=== PATIENT | male | born 1965 | race Caucasian/White ===

== ENCOUNTER 2016-12-22 16:32 | Inpatient (IN) ==
[2016-12-22] MEDS ORDERED: Ondansetron 4 MG/2 ML VIAL IVP ONE (18:52)
[2016-12-22] MEDS ORDERED: *HR* HYDROmorphone (PF) 1 MG/ML SYRINGE IVP ONE ×2 (18:52→21:39)
[2016-12-22] MEDS ORDERED: methylPREDNISolone 125 MG/2 ML VIAL IVP ONE (18:52)
--- NOTE | 2016-12-22 18:55 | Emergency Department Note ---
Disposition Clinical Impression: Lumbar compression fracture, Uncontrolled pain, Fall, Calcaneus fracture, right Disposition: Admitted As Inpatient Referrals: Adenike Emerson CNP [Primary Care Provider] - Forms: ED Satisfaction Letter General Adult HPI - General Chief complaint: ED Back Pain/Injury Stated complaint: Back Pain fall 7days ago Time Seen by Provider: 12/22/16 18:38 Source: patient Limitations: no limitations - History of Present Illness HPI Narrative: 51-year-old male reports emergency department planing of low back pain on the left side. He states he fell off a roof about 3 weeks ago and was evaluated at [facility] in their emergency department he describes a CT of the lumbar spine being read as negative, he had a heel fracture which was repaired after the incident. The patient denies any injury to the head neck upper back or chest. He denies any abdominal injury or extremity injuries apart from the right heel. The patient does not take Coumadin or Xarelto or other anticoagulants apart from antiplatelet agents. He has a history of multiple lumbar surgeries. He states he has no appointment with his orthopedist this Thursday. The patient states he developed low back pain about 3 days ago which is worse than usual. He takes opiates for pain control but they have been insufficient to control his pain. The patient describes abdominal pain in left abdomen as well. There is no history of aneurysm. No other acute injuries. No chest pain or shortness of breath. No weakness or numbness in the lower extremities apart from chronic neuropathy left side. He describes sciatica on the left and pain associated with movement. No bloody urine. No acute bowel or bladder dysfunction. History of saddle anesthesia or change in neurologic status the patient is been able to move his feet without difficulty. Fever or rash or urinary symptomatology. Pain Scale: 8 - Related Data Home Medications Medication Instructions Recorded Confirmed Clopidogrel [Plavix] 75 mg PO HS 11/17/16 12/22/16 Duloxetine HCl [Cymbalta] 60 mg PO HS 11/17/16 12/22/16 Gabapentin [Neurontin] 800 mg PO TID 11/17/16 12/22/16 Lisinopril [Zestril] 10 mg PO HS 11/17/16 12/22/16 Oxycodone HCl/Acetaminophen 1 each PO Q6H PRN 11/17/16 12/22/16 [Percocet 10-325 mg Tablet] Aspirin [Lo-Dose Aspirin EC] 81 mg PO HS 12/22/16 12/22/16 Oxycodone HCl [Oxycodone HCl] 5 mg PO Q4-6H PRN 12/22/16 12/22/16 Allergies Allergy/AdvReac Type Severity Reaction Status Date / Time ciprofloxacin [From Cipro] AdvReac Hallucinati Verified 12/22/16 21:54 ng,ITCHING All systems ED: reviewed and negative except as stated. Past Medical History - Past Medical History Medical history: Reports: myocardial infarction, other (Lumbar disc disease with multiple surgeries per patient) Psychiatric history: Reports: no psych history - Social History Smoking Status: Never smoker Smokeless Tobacco Status: No Alcohol use: Reports: none Drug use: Reports: none Physical Exam - General Limitations: no limitations General appearance: alert, other (Appears to be uncomfortable.) - Head Head exam: atraumatic, normocephalic, normal inspection, other (Negative hemotympanum, negative Small sign) - Eye Eye exam: Present: normal appearance, PERRL, EOMI. Absent: scleral icterus, conjunctival injection, miosis, mydriasis - ENT ENT exam: normal exam, normal oropharynx, mucous membranes moist, TM's normal bilaterally, normal external ear exam - Neck Neck exam: Present: normal inspection, full ROM, trachea midline. Absent: tenderness - Chest Chest inspection: Present: symmetric chest wall rise. Absent: tenderness - Respiratory Respiratory exam: Present: normal lung sounds bilaterally. Absent: respiratory distress, wheezes, accessory muscle use, prolonged expiratory phase - Cardiovascular Cardiovascular exam: Present: regular rate, normal rhythm, normal heart sounds - Abdominal Exam Abdominal exam: Present: soft, tenderness, normal bowel sounds. Absent: distention, guarding, rebound, rigidity, Wang's sign, Rovsing's sign, tenderness at McBurney's Point, ascites, pulsatile mass Abdominal tenderness: Present: LUQ, LLQ, mild - Rectal Exam Rectal exam: Present: other (Patient declines rectal examination.) - Extremities Exam Extremities exam: Present: full ROM, normal capillary refill, other (Bilateral upper extremities and left lower extremity warm and well perfused without evidence of neurovascular or neuromuscular compromise or trauma. Good range of motion throughout the major joints. Right lower extremity below the knee is in a cast but the foot is mobile and the patient has good sensation and strength throughout with no evidence of acute neuropathy or vascular issue. Patient can dorsiflex and plantar flex his toes against resistance without difficulty. There is no ismael sensory loss appreciated. No evidence of acute motor dysfunction grossly. The left knee and hip are supple without evidence of overt injury.). Absent: calf tenderness - Expanded Lower Extremity Exam Lower leg exam: Absent: Homans' sign Neurovascular/Tendon exam: Present: normal capillary refill. Absent: motor deficit, sensory deficit, tendon deficit, extremity cold to touch, pallor - Back Exam Back exam: Present: normal inspection, full ROM, tenderness, CVA tenderness (L) , paraspinal tenderness, straight leg raise (L), other (Postsurgical wounds clean dry and intact without evidence of redness swelling or skin color change no fluctuance or abscess.). Absent: vertebral tenderness, straight leg raise (R ) - Neurological Exam Neurological exam: Present: alert, oriented X3, CN II-XII intact. Absent: motor sensory deficit - Psychiatric Psychiatric exam: Present: normal affect, normal mood - Skin Skin exam: Present: warm, dry, intact, normal color. Absent: rash, cyanosis, diaphoresis, erythema, pallor, mottled Course Vital Signs Temperature 98.0 F 12/22/16 16:42 Pulse Rate 81 12/22/16 16:42 Respiratory Rate 16 12/22/16 16:42 Blood Pressure 130/78 12/22/16 16:42 O2 Sat by Pulse Oximetry 96 12/22/16 16:42 Temperature 98.0 F 12/22/16 16:42 Pulse Rate 78 12/22/16 22:16 Respiratory Rate 16 12/22/16 21:41 Blood Pressure 152/86 12/22/16 22:16 O2 Sat by Pulse Oximetry 96 12/22/16 22:16 Oxygen Delivery Oxygen Delivery Room Air Medical Decision Making - [facility] Narrative Medical decision making narrative: The patient is taking Percocet and oxycodone at home, he is approaching 7 tablets a day and has uncontrolled back pain. His CT scan suggest L2 and L3 endplates fractures which are acute. The patient has notable sciatica but no evidence of neurovascular or neuromuscular compromise. No acute intra- abdominal processes noted. The patient has been unable to tolerate the pain at home. We gave him Dilaudid and Zofran in the ED as well as Solu-Medrol and his pain was still uncontrolled. He did not feel comfortable going home. Based on the patient's level of pain and uncontrolled pain with a remote aggressive outpatient regimen, I thought the patient may benefit from hospitalization and perhaps a pain specialist and orthopedic consult. I reviewed the case with Dr. Guevara orthopedist to felt a medical admission would be appropriate with or so consult at medicine discretion. Dr. Rayo would also be available per Dr. Guevara. The patient family are highly recalcitrant for an attempt at home therapy. I consulted with the hospitalist who has accepted the patient to their care. - Lab Data Lab results reviewed: Yes I reviewed the patient's lab results. Result diagrams: 12/22/16 19:00 12/22/16 19:00 Lab Results 12/22/16 12/22/16 12/22/16 Range/Units 19:00 19:00 19:00 WBC 6.0 (4.3-11.1) K/mcL RBC 3.83 L (4.19-5.50) M/mcL Hgb 11.8 L (12.9-16.9) g/dL Hct 36.8 L (37.5-50.1) % MCV 96.1 (83.0-100.0) fL MCH 30.8 (28.0-33.3) pg MCHC 32.1 (31.6-35.5) g/dL RDW 12.0 (11.5-14.5) % Plt Count 355 (140-400) K/mcL MPV 9.6 (9.4-12.4) fL Immature Gran % 0.3 (0-4) % Seg Neutrophils % 49.1 % Lymphocytes % 36.9 % Monocytes % 11.5 % Eosinophils % 1.5 % Basophils % 0.7 % Neutrophils # 2.9 (1.6-8.9) K/mcL Lymphocytes # 2.2 (0.6-4.6) K/mcL Monocytes # 0.7 (0.0-1.3) K/mcL Eosinophils # 0.1 (0.0-0.6) K/mcL Basophils # 0.0 (0.0-0.2) K/mcL Immature Plt Fraction 2.4 (1.1-6.1) % Sodium 140 (136-145) mEq/L Potassium 4.0 (3.5-4.5) mEq/L Chloride 104 (98-109) mEq/L Carbon Dioxide 25 (19-29) mEq/L BUN 9 (8-26) mg/dL Creatinine 0.75 (0.72-1.25) mg/dL Est GFR ( Amer) > 60 (> 60) Est GFR (Non-Af Amer) > 60 (> 60) BUN/Creatinine Ratio 12 (6-26) Glucose 114 H (70-99) mg/dL Calculated Osmolality 290 (280-300) Lactic Acid 2.3 H (0.5-2.2) mmol/L Calcium 9.9 (8.6-10.8) mg/dL Total Bilirubin < 0.2 L (0.2-1.2) mg/dL Direct Bilirubin 0.2 (0.0-0.5) mg/dL Indirect Bilirubin 0.0 (0.0-1.2) mg/dL AST 15 (5-34) Units/L ALT 17 (0-55) Units/L Alkaline Phosphatase 146 H (38-126) Units/L C-Reactive Protein (Less than 5) mg/L Serum Total Protein 7.9 (6.0-8.3) g/dL Albumin 3.9 (3.5-5.0) g/dL Globulin 4.0 H (2.4-3.5) g/dL Albumin/Globulin Ratio 1.0 L (1.1-2.2) Lipase < 10 (8-78) Units/L Urine Color (Yellow) Urine Clarity (Clear) Urine pH (5.0-8.0) pH Units Ur Specific [place] (1.010-1.025) Urine Protein (Neg-Trace) mg/dL Urine Glucose (UA) (Normal) mg/dL Urine Ketones (Negative) mg/dL Urine Blood (Negative) Urine Nitrite (Negative) Urine Bilirubin (Negative) Urine Urobilinogen (Normal) mg/dL Ur Leukocyte Esterase (Negative) Ur Culture Indicated? (NO) 12/22/16 12/22/16 Range/Units 19:00 19:47 WBC (4.3-11.1) K/mcL RBC (4.19-5.50) M/mcL Hgb (12.9-16.9) g/dL Hct (37.5-50.1) % MCV (83.0-100.0) fL MCH (28.0-33.3) pg MCHC (31.6-35.5) g/dL RDW (11.5-14.5) % Plt Count (140-400) K/mcL MPV (9.4-12.4) fL Immature Gran % (0-4) % Seg Neutrophils % % Lymphocytes % % Monocytes % % Eosinophils % % Basophils % % Neutrophils # (1.6-8.9) K/mcL Lymphocytes # (0.6-4.6) K/mcL Monocytes # (0.0-1.3) K/mcL Eosinophils # (0.0-0.6) K/mcL Basophils # (0.0-0.2) K/mcL Immature Plt Fraction (1.1-6.1) % Sodium (136-145) mEq/L Potassium (3.5-4.5) mEq/L Chloride (98-109) mEq/L Carbon Dioxide (19-29) mEq/L BUN (8-26) mg/dL Creatinine (0.72-1.25) mg/dL Est GFR ( Amer) (> 60) Est GFR (Non-Af Amer) (> 60) BUN/Creatinine Ratio (6-26) Glucose (70-99) mg/dL Calculated Osmolality (280-300) Lactic Acid (0.5-2.2) mmol/L Calcium (8.6-10.8) mg/dL Total Bilirubin (0.2-1.2) mg/dL Direct Bilirubin (0.0-0.5) mg/dL Indirect Bilirubin (0.0-1.2) mg/dL AST (5-34) Units/L ALT (0-55) Units/L Alkaline Phosphatase (38-126) Units/L C-Reactive Protein 32 H (Less than 5) mg/L Serum Total Protein (6.0-8.3) g/dL Albumin (3.5-5.0) g/dL Globulin (2.4-3.5) g/dL Albumin/Globulin Ratio (1.1-2.2) Lipase (8-78) Units/L Urine Color Yellow (Yellow) Urine Clarity Clear (Clear) Urine pH 6.0 (5.0-8.0) pH Units Ur Specific [place] 1.026 H (1.010-1.025) Urine Protein Negative (Neg-Trace) mg/dL Urine Glucose (UA) Normal (Normal) mg/dL Urine Ketones Negative (Negative) mg/dL Urine Blood Negative (Negative) Urine Nitrite Negative (Negative) Urine Bilirubin Negative (Negative) Urine Urobilinogen Normal (Normal) mg/dL Ur Leukocyte Esterase Negative (Negative) Ur Culture Indicated? NO (NO) - Radiology Data Radiology results reviewed: Yes I reviewed the patient's radiology results.
[2016-12-22 19:06] LABS: Basophils % 0.7 %; Eosinophils # 0.1 K/mcL (0.0-0.6); Eosinophils % 1.5 %; Hematocrit 36.8 % (37.5-50.1); Hemoglobin 11.8 g/dL (12.9-16.9); Immature Granulocytes % 0.3 % (0-4); Immature Platelets 2.4 % (1.1-6.1); Lymphocytes # 2.2 K/mcL (0.6-4.6); Lymphocytes % 36.9 %; Mean Corpuscular HGB Conc 32.1 g/dL (31.6-35.5); Mean Corpuscular Hemoglobin 30.8 pg (28.0-33.3); Mean Corpuscular Volume 96.1 fL (83.0-100.0); Mean Platelet Volume 9.6 fL (9.4-12.4); Monocytes # 0.7 K/mcL (0.0-1.3); Monocytes % 11.5 %; Neutrophils # 2.9 K/mcL (1.6-8.9); Platelet Count 355 K/mcL (140-400); Red Blood Count 3.83 M/mcL (4.19-5.50); Segmented Neutrophils % 49.1 %
[2016-12-22 19:19] LABS: Alanine Aminotransferase 17 Units/L (0-55); Albumin 3.9 g/dL (3.5-5.0); Alkaline Phosphatase 146 Units/L (38-126); Aspartate Amino Transferase 15 Units/L (5-34); BUN/Creatinine Ratio 12 (6-26); Bilirubin,Direct 0.2 mg/dL (0.0-0.5); Blood Urea Nitrogen 9 mg/dL (8-26); Calcium 9.9 mg/dL (8.6-10.8); Carbon Dioxide 25 mEq/L (19-29); Chloride 104 mEq/L (98-109); Glucose 114 mg/dL (70-99); Osmolality,Calculated 290 (280-300); Sodium 140 mEq/L (136-145); Total Protein 7.9 g/dL (6.0-8.3); eGFR For African Americans > 60 (> 60); eGFR For Non-African Americans > 60 (> 60)
[2016-12-22 19:21] LABS: Bilirubin,Total < 0.2 mg/dL (0.2-1.2); Lipase < 10 Units/L (8-78)
[2016-12-22 19:56] LABS: Bilirubin,Urine Negative (Negative); Blood,Urine Negative (Negative); Clarity,Urine Clear (Clear); Color,Urine Yellow (Yellow); Glucose,Urine (UA) Normal (Normal); Ketones,Urine Negative (Negative); Leukocyte Esterase,Urine Negative (Negative); Nitrite,Urine Negative (Negative); Protein,Urine Negative (Neg-Trace); Specific Gravity,Urine 1.026 (1.010-1.025); Urobilinogen,Urine Normal (Normal)
[2016-12-23] MEDS ORDERED: Ondansetron 4 MG/2 ML VIAL IVP PRN (00:36)
--- NOTE | 2016-12-23 01:00 | Internal Med History&Physical ---
Date of Encounter: 12/23/16 Time of Encounter: 00:56 Assessment and Plan (1) Lumbar compression fracture Current visit: Yes Status: Acute Related to recent fall from a ladder. Minimal loss of vertebral height. Orthopedic consultation. PT OT and social media content manager to see the patient Qualifiers: Qualified Code(s): S32.010A - Wedge compression fracture of first lumbar vertebra, initial encounter for closed fracture (2) Calcaneus fracture, right Current visit: Yes Status: Acute Status post surgery. Orthopedic follow-up. Qualifiers: Qualified Code(s): S92.001A - Unspecified fracture of right calcaneus, initial encounter for closed fracture (3) Coronary artery disease Current visit: Yes Status: Acute Continue aspirin and Plavix. Qualifiers: Qualified Code(s): I25.10 - Atherosclerotic heart disease of [place] coronary artery without angina pectoris Internal Medicine - H&P: HPI Chief complaint: back pain History of present illness: Mr. Abbasi is a 51 year old male with a history of coronary artery disease status post PCI, chronic low back pain status post back surgery, spinal stenosis who had calcaneal fracture on November 29 after the fall for which she had surgery December 15 presents to the emergency room today with an incomplete of back pain. For the past 3 days patient has been having severe low back pain. He was taking Percocet and oxycodone as needed without improvement of this pain. Patient is still able to bear weight on the left lower extremity. Patient denies any bowel or bladder dysfunction. Patient still able to raise both lower extremities against gravity. No otherwise complains. Past Med Surg Social Fam HX - Past Medical History Medical history: myocardial infarction, other (Lumbar disc disease with multiple surgeries per patient) Psychiatric history: no psych history - Social History Smoking Status: Never smoker Smokeless Tobacco Status: No Alcohol use: none Drug use: none Internal Medicine - H&P: Meds Clopidogrel [Plavix] 75 mg PO HS 11/17/16 [History] Duloxetine HCl [Cymbalta] 60 mg PO HS 11/17/16 [History] Gabapentin [Neurontin] 800 mg PO TID 11/17/16 [History] Lisinopril [Zestril] 10 mg PO HS 11/17/16 [History] Oxycodone HCl/Acetaminophen [Percocet 10-325 mg Tablet] 1 each PO Q6H PRN [History] Aspirin [Lo-Dose Aspirin EC] 81 mg PO HS 12/22/16 [History] Oxycodone HCl [Oxycodone HCl] 5 mg PO Q4-6H PRN 12/22/16 [History] 3 Allergy/AdvReac Type Severity Reaction Status Date / Time ciprofloxacin [From Cipro] AdvReac Hallucinati Verified 12/22/16 21:54 ng,ITCHING All Systems PM: A 10-system review of systems was performed and is negative for pertinent findings except as documented above in the HPI. Review of systems: The point review of systems is negative except for HPI. - Constitutional Vitals: Temp Pulse Resp BP Pulse Ox 98.1 F 77 16 146/88 96 12/23/16 00:45 12/23/16 00:45 12/23/16 00:45 12/23/16 00:45 12/23/16 00:45 Exam: General: Patient is A&O X3 Cardiac: normal S1, S2, no additional sounds or murmurs Chest: Clear to auscultation bilaterally Abdomen: soft, nontender, non distended, normal BS. Neuro: No focal deficits Muskloskletal: straight leg raise -ve Internal Med - H&P Results - Labs CBC & Chem 7: 12/22/16 19:00 12/22/16 19:00
[2016-12-23] MEDS: *HR* HYDROmorphone (PF) 1 MG/ML SYRINGE IVP PRN ×5 (01:47→21:28)
[2016-12-23] MEDS: *HR* OxyCODONE/APAP 10/325 TABLET PO PRN ×3 (03:51→20:07)
[2016-12-23] MEDS: Famotidine 20 MG TABLET PO SCH ×2 (09:09→21:12)
[2016-12-23] MEDS: Gabapentin 400 MG CAPSULE PO SCH ×3 (09:09→21:12)
--- NOTE | 2016-12-23 15:35 | Internal Med Progress Note ---
Date of Encounter: 12/23/16 Time of Encounter: 14:15 - Assessment and plan (1) Lumbar compression fracture Current Visit: Yes Status: Acute Assessment and plan: Presents with acute on chronic back pain, worsening since recent fall 3 weeks ago; CT lumbar spine shows superior end-plate compression fractures of L2-3 with intact hardware in L3-S1 fusion; pain control with PRN IV Dilaudid and Percocet; Spine surgery consulted, will f/ up recommendations; PT/OT pending; Qualifiers: Encounter type: subsequent encounter Lumbar vertebra fracture level: L3 Fracture type: closed Fracture healing: with routine healing Qualified Code( s): S32.030D - Wedge compression fracture of third lumbar vertebra, subsequent encounter for fracture with routine healing (2) Calcaneus fracture, right Current Visit: Yes Status: Acute Assessment and plan: patient had recent fracture involving ankle and calcaneus, underwent repair and fixation- ORIF; continue pain meds and [id number] on right foot; continue splint, surgical boot to right foot; follows with Orthopedics at [place]; Qualifiers: Encounter type: subsequent encounter Calcaneus location: unspecified portion of calcaneus Fracture type: closed Fracture alignment: displaced Fracture healing: with routine healing Qualified Code(s): S92.001D - Unspecified fracture of right calcaneus, subsequent encounter for fracture with routine healing (3) Coronary artery disease Current Visit: Yes Status: Chronic Qualifiers: Coronary Disease-Associated Artery/Lesion type: [place] artery [place] vs. transplanted heart: [place] heart Associated angina: without angina Qualified Code(s): I25.10 - Atherosclerotic heart disease of [place] coronary artery without angina pectoris - Subjective Interval history: Reports back pain, worse on sitting up or standing, better in supine position; right ankle pain tolerable; had a mechanical fall about 3 weeks ago and a subsequent right calcaneal and ankle repair surgery; follows with Orthopedics and Spine surgery at [place]; - Constitutional Vitals: Temp Pulse Resp BP Pulse Ox 97.9 F 85 18 124/66 93 12/23/16 14:37 12/23/16 14:37 12/23/16 14:37 12/23/16 14:37 12/23/16 14:37 General appearance: Present: A&O X 3, obese, answers questions appropriately - Respiratory Respiratory exam: Present: CTAB. Absent: accessory muscle use, rales, rhonchi, wheezes - Cardiovascular Cardiovascular exam: Present: RRR, +S1, +S2. Absent: diastolic murmur, gallop, rubs, systolic murmur - GI/Abdominal GI/Abdominal exam: Present: normal bowel sounds, soft, no peritoneal signs. Absent: distended, tenderness - Extremities Exam Extremities exam: Present: full ROM (restricted in right ankle), warm, radial pulses palpable and symmetrical. Absent: calf tenderness, cyanotic, pedal edema Additional comments: right ankle in splint and surgical boot - Neurological Exam Neurological exam: Present: CN II-XII intact, oriented X3, no focal deficits. Absent: pronater drift, facial droop, speech deficit Internal Medicine: Result - Labs CBC & Chem 7: 12/22/16 19:00 12/22/16 19:00 Consult Discharge Plan - Plan Referrals: Adenike Emerson GREEN END DEPARTMENT SUPERVISOR [Primary Care Provider] -
--- NOTE | 2016-12-23 18:57 | Spinal Consult Note ---
Date of Encounter: 12/23/16 Time of Encounter: 18:54 Assessment and Plan (1) Lumbar vertebral fracture Current Visit: Yes Status: Acute He is lying in bed in obvious pain secondary to back pain. Afebrile vital signs stable. He is neurovascularly intact with regard to his bilateral lower extremities. He is tenderness to palpation in the lumbar region. His hip move symmetrically. He has a posterior splint over the right leg and ankle. CT scan of the lumbar spine reveals an instrumented fusion with pedicle screws at L3 and S1. Fusion extends from L3-S1 and there is an interbody graft at L5- S1. There is no hardware complication seen. There are acute superior endplate fractures at L2 and L3. The L2 fracture has approximately 20% loss of vertebral height. There is minimal loss of height of the L3 fracture. Impression: 1) Vertebral fractures L2 and L3 superior endplates 2) history of previous lumbar fusion. Plan: I had a long discussion with the patient regarding treatment of vertebral fractures of the lumbar spine. We discussed nonoperative treatment including bracing and analgesics. The patient would like to proceed with kyphoplasty of L2. The patient understands that the presence of pedicle screws in L3 precludes cannulating this vertebral body via a transpedicular route. The L2 fracture is the more severe fracture pattern and this was discussed. Risks benefits and possible complications were discussed and the patient would like to proceed. We are going to hold his Plavix until after the surgical procedure. The patient understands he must be medically optimized and cleared prior to surgical intervention. Qualifiers: Encounter type: initial encounter Lumbar vertebra fracture level: L2 Fracture type: closed Fracture morphology: unspecified fracture morphology Qualified Code(s): S32.029A - Unspecified fracture of second lumbar vertebra, initial encounter for closed fracture (2) History of lumbar spinal fusion Current Visit: Yes Status: Acute History of Present Illness Chief complaint: Severe back pain after a fall HPI: Mr. Abbasi is a 51 year old male Who complains of a five-day history of severe back pain after a fall. He has had 5 previous back surgeries including lumbar fusion by Dr. Hayes in [facility]. He compliant currently complains of severe low back pain which is in this lumbar region. 90% of his pain is in the back but he does have a small radicular component in the left inguinal region. He denies fevers, chills, bowel bladder symptomatology, or significant radicular symptoms. We are asked to see the patient secondary to fractures found on CT scan. He was admitted through the emergency department last night due to intractable pain. Past Med Surg Social Fam HX - Past Medical History Medical history: myocardial infarction, other Psychiatric history: no psych history - Social History Smoking Status: Never smoker Smokeless Tobacco Status: No Alcohol use: none Drug use: none - Family History Father Name: Rj Abbasi Age: 56 Family Member Ethnicity: Non- Living Status: Age at : 56 Cause of : Lung Cancer Hx Family Cardiac Disorders: No Hx Family Respiratory Disorders: No Hx Family Cancer: Yes (lung cancer) Hx Family GI Disorders: No Hx Family Genitourinary Disorders: No Hx Family Endocrine Disorder: No Hx Family Musculoskeletal Disorders: No Hx Family Neuromuscular Disorders: No Hx Family Neurologic Disorders: No Hx Family HEENT Disorders: No Hx Family Autoimmune Disorders: No Hx Family Reproductive Disorders: No Hx Family Psychosocial Disorders: No Hx Family Medical Disorders: No Medications and Allergies Clopidogrel [Plavix] 75 mg PO HS 11/17/16 [History] Duloxetine HCl [Cymbalta] 60 mg PO HS 11/17/16 [History] Gabapentin [Neurontin] 800 mg PO TID 11/17/16 [History] Lisinopril [Zestril] 10 mg PO HS 11/17/16 [History] Oxycodone HCl/Acetaminophen [Percocet 10-325 mg Tablet] 1 each PO Q6H PRN [History] Aspirin [Lo-Dose Aspirin EC] 81 mg PO HS 12/22/16 [History] Oxycodone HCl [Oxycodone HCl] 5 mg PO Q4-6H PRN 12/22/16 [History] 3 Allergy/AdvReac Type Severity Reaction Status Date / Time ciprofloxacin [From Cipro] AdvReac Hallucinati Verified 12/22/16 21:54 ng,ITCHING Results - Labs Result Diagrams: 12/22/16 19:00 12/22/16 19:00 Labs: Abnormal lab results RBC 3.83 M/mcL (4.19-5.50) L 12/22/16 19:00 Hgb 11.8 g/dL (12.9-16.9) L 12/22/16 19:00 Hct 36.8 % (37.5-50.1) L 12/22/16 19:00 Glucose 114 mg/dL (70-99) H 12/22/16 19:00 Total Bilirubin < 0.2 mg/dL (0.2-1.2) L 12/22/16 19:00 Alkaline Phosphatase 146 Units/L (38-126) H 12/22/16 19:00 C-Reactive Protein 32 mg/L (Less than 5) H 12/22/16 19:00 Globulin 4.0 g/dL (2.4-3.5) H 12/22/16 19:00 Albumin/Globulin Ratio 1.0 (1.1-2.2) L 12/22/16 19:00 Ur Specific [place] 1.026 (1.010-1.025) H 12/22/16 19:47 All other labs normal. Consult Discharge Plan - Plan Referrals: Adenike Emerson, SPANNER OPERATOR [Primary Care Provider] -
[2016-12-23] MEDS ORDERED: Aspirin Enteric Coated 81 MG Tablet PO SCH (21:00)
[2016-12-24] MEDS: *HR* HYDROmorphone (PF) 1 MG/ML SYRINGE IVP PRN ×5 (01:38→21:00)
[2016-12-24] MEDS: *HR* OxyCODONE/APAP 10/325 TABLET PO PRN ×4 (07:09→23:11)
[2016-12-24] MEDS: Gabapentin 400 MG CAPSULE PO SCH ×3 (07:10→20:09)
[2016-12-24] MEDS: Famotidine 20 MG TABLET PO SCH ×2 (07:11→20:09)
--- NOTE | 2016-12-24 11:19 | Anesthesia Evaluation PreOp ---
Date of Encounter: 12/24/16 Time of Encounter: 11:17 - Past History Planned Operation: L2 Kyphoplasty Cardiac History: ID, HTN, Cardiac Stent (2014) Pulmonary History: Denies Any Significant HX SPECIAL AGENT History: Denies Any Significant HX Other Medical History: Denies Any Significant HX Alcohol Use: none Drug use: none Medications and Allergies Clopidogrel [Plavix] 75 mg PO HS 11/17/16 [History] Duloxetine HCl [Cymbalta] 60 mg PO HS 11/17/16 [History] Gabapentin [Neurontin] 800 mg PO TID 11/17/16 [History] Lisinopril [Zestril] 10 mg PO HS 11/17/16 [History] Oxycodone HCl/Acetaminophen [Percocet 10-325 mg Tablet] 1 each PO Q6H PRN [History] Aspirin [Lo-Dose Aspirin EC] 81 mg PO HS 12/22/16 [History] Oxycodone HCl [Oxycodone HCl] 5 mg PO Q4-6H PRN 12/22/16 [History] 3 Allergy/AdvReac Type Severity Reaction Status Date / Time ciprofloxacin [From Cipro] AdvReac Hallucinati Verified 12/22/16 21:54 ng,ITCHING - Meds/Allergy Pre-op Review Medications Reviewed: Yes Allergies Reviewed: Yes Beta Blockers on Current Med List: No Anesthesia Results - Labs 12/22/16 19:00 12/22/16 19:00 Echocardiogram Name: Alfredo Abbasi Date of Study: 12/12/2016 Impressions: LVEF 60%. Moderate left ventricular diastolic dysfunction. Normal right ventricular structure and function. Mild aortic regurgitation. Mild tricuspid regurgitation. Mild pulmonary hypertension. Anesthesia Exam O2 Sat Weight 107.96 kg O2 Sat by Pulse Oximetry 98 O2 Sat by Pulse Oximetry 97 O2 Sat by Pulse Oximetry 97 O2 Sat by Pulse Oximetry 97 O2 Sat by Pulse Oximetry 93 Vital Signs Temp Pulse Resp BP Pulse Ox 98.0 F 81 16 130/78 96 12/22/16 16:42 12/22/16 16:42 12/22/16 16:42 12/22/16 16:42 12/22/16 16:42 Height: 6'1'' Weight: 238# NPO (# of Hours): > 8 hrs Pain Scale: 0 Pain Scale Used: Numeric (1 - 10) - HEENT Pupil (Motor): Pupils equal, EOMI Mallampati: II Teeth: Normal Oral Opening: Greater than 3 - SPECIAL AGENT LOC: Oriented SPECIAL AGENT Motor: Normal RUE, Normal LUE, Normal RLE, Normal LLE, Normal Face SPECIAL AGENT Sensory: Normal: RUE, LUE, RLE, LLE, Face - Cardiac Rhythm: Regular Murmur: None JVD: No Carotid Bruit: No - Pulmonary Breath Sounds: bilateral Clear Respiratory Effort: Symmetrical Anesthesia Assess/Plan ASA Score: 3 Modified Fredrick Scale for Level of Consciousness: Cooperative, oriented, and tranquil Anesthetic Plan: General Autologous Blood: Yes Monitoring Plan: Standard Monitors Recovery Plan: PACU
[2016-12-24] MEDS ORDERED: Ondansetron 4 MG/2 ML VIAL IVP PRN (11:33)
[2016-12-24] MEDS ORDERED: CeFAZolin Syringe 2,000MG/20 ML SYR IVPB ONE (11:52)
[2016-12-24] MEDS ORDERED: *HR* FentaNYL (PF) 100 MCG/2 ML VIAL ONE (11:56)
[2016-12-24] MEDS ORDERED: *HR* Succinylcholine 200 MG/10 ML VIAL IVP ONE (11:56)
[2016-12-24] MEDS ORDERED: Lidocaine -MPF 2% 2 ML VIAL ONE (11:56)
[2016-12-24] MEDS ORDERED: Ondansetron 4 MG/2 ML VIAL ONE (11:56)
[2016-12-24] MEDS ORDERED: Lidocaine -MPF 4% 5 ML AMPUL ONE (11:56)
[2016-12-24] MEDS ORDERED: Dexamethasone 4 MG/ML VIAL ONE (11:56)
[2016-12-24] MEDS ORDERED: *HR* Propofol 200 MG/20 ML VIAL IVP ONE ×2 (11:56→12:37)
[2016-12-24] MEDS ORDERED: *HR* Midazolam HCl 2 MG/2 ML VIAL ONE (11:56)
[2016-12-24] MEDS ORDERED: ceFAZolin 2,000 MG in Water for inj. (sterile) 20 ML IVP ONE (12:04)
[2016-12-24] MEDS ORDERED: Gabapentin 400 MG CAPSULE PO STA (13:05)
--- NOTE | 2016-12-24 13:07 | Internal Med Progress Note ---
Date of Encounter: 12/24/16 Time of Encounter: 08:35 - Assessment and plan (1) Lumbar vertebral fracture Current Visit: Yes Status: Acute Assessment and plan: Spine surgery consulted. Awaiting kyphoplasty planned for later today. Moderate risk for complications. Qualifiers: Encounter type: initial encounter Lumbar vertebra fracture level: L2 Fracture type: closed Fracture morphology: other fracture Qualified Code(s) : S32.028A - Other fracture of second lumbar vertebra, initial encounter for closed fracture (2) Calcaneus fracture, right Current Visit: Yes Status: Acute Assessment and plan: Supportive care. Pain control and physical therapy. Continue splint and surgical boot to right foot. Qualifiers: Encounter type: subsequent encounter Calcaneus location: unspecified portion of calcaneus Fracture type: closed Fracture alignment: displaced Fracture healing: with routine healing Qualified Code(s): S92.001D - Unspecified fracture of right calcaneus, subsequent encounter for fracture with routine healing (3) Coronary artery disease Current Visit: Yes Status: Chronic Assessment and plan: No chest pain at this time. Okay to hold Plavix for planned surgery today. May resume when okay with surgery after postoperatively. Patient does not have any shortness of breath or signs of heart failure. Qualifiers: Coronary Disease-Associated Artery/Lesion type: [place] artery [place] vs. transplanted heart: [place] heart Associated angina: without angina Qualified Code(s): I25.10 - Atherosclerotic heart disease of [place] coronary artery without angina pectoris - Subjective Interval history: Patient is awake and alert. Complains of back pain especially with movement. Scheduled for kyphoplasty performed later today. No other complaints at this time. No focal weakness. No numbness. No bowel or bladder incontinence. - Constitutional Vitals: Temp Pulse Resp BP Pulse Ox 98 F 74 16 124/67 99 12/24/16 09:53 12/24/16 09:53 12/24/16 09:53 12/24/16 09:53 12/24/16 09:53 General appearance: Present: A&O X 3, obese, answers questions appropriately - Respiratory Respiratory exam: Present: CTAB. Absent: accessory muscle use, rales, rhonchi, wheezes - Cardiovascular Cardiovascular exam: Present: RRR, +S1, +S2. Absent: diastolic murmur, gallop, rubs, systolic murmur - GI/Abdominal GI/Abdominal exam: Present: normal bowel sounds, soft, no peritoneal signs. Absent: distended, tenderness - Extremities Exam Extremities exam: Present: warm, radial pulses palpable and symmetrical. Absent : calf tenderness, cyanotic, pedal edema - Neurological Exam Neurological exam: Present: CN II-XII intact, oriented X3, no focal deficits, strengths equal and symetr throughout. Absent: facial droop, speech deficit Internal Medicine: Result - Labs CBC & Chem 7: 12/22/16 19:00 12/22/16 19:00 - VTE Documentation of Mechanical Device: Intermittent pneumatic compression device Consult Discharge Plan - Plan Referrals: Adenike Emerson, STERILE SUPERVISOR [Primary Care Provider] -
[2016-12-24] MEDS ORDERED: Ketorolac 30 MG/ML VIAL IVP ONE (13:15)
--- NOTE | 2016-12-24 13:48 | Anesthesia Evaluation Post Op ---
Date of Encounter: 12/24/16 Time of Encounter: 13:42 - Vital Signs Vital Signs: vss - Lungs Lungs: Clear Ascult./Percussion - Airway Airway: Non-obstructed - Cardiovascular Baseline Rhythm - Mental Status Mental Status: Alert & Oriented, Answers Appropriately - Pain Pain Scale used: Darlene (Faces) (RN informed to notify attending immediately if any neuro changes occur as patient has swollen area around incision on single level Kypho. surgeon aware and will assess. ok to move from anesthesia standpoint, and surgeon stated to RN's okay to move to floor and will assess RACH.) - Nausea Vomiting Nausea Vomiting: Not Present - Hydration Hydration: Ice chips - Discharge PostOp Status: Transfer Patient to floor
[2016-12-24] MEDS: Ringers Solution, Lactated 1,000 ML IVC SCH (15:04)
[2016-12-24] MEDS: CeFAZolin Premix DUPLEX 2,000 MG/50 ML BAG IVPB SCH (19:04)
[2016-12-25] MEDS: *HR* HYDROmorphone (PF) 1 MG/ML SYRINGE IVP PRN ×2 (01:13→05:21)
[2016-12-25] MEDS: Ringers Solution, Lactated 1,000 ML IVC SCH (01:48)
[2016-12-25] MEDS: CeFAZolin Premix DUPLEX 2,000 MG/50 ML BAG IVPB SCH (03:43)
[2016-12-25] MEDS: *HR* OxyCODONE/APAP 10/325 TABLET PO PRN ×3 (03:43→12:25)
[2016-12-25] MEDS: Gabapentin 400 MG CAPSULE PO SCH ×2 (08:25→14:58)
[2016-12-25] MEDS: Famotidine 20 MG TABLET PO SCH (08:25)
--- NOTE | 2016-12-25 13:29 | Discharge Summary ---
Date of Encounter: 12/25/16 Time of Encounter: 11:50 - Discharge Diagnosis (1) Lumbar vertebral fracture Priority: Primary Status: Acute Qualifiers: Encounter type: initial encounter Lumbar vertebra fracture level: L2 Fracture type: closed Fracture morphology: other fracture Qualified Code(s) : S32.028A - Other fracture of second lumbar vertebra, initial encounter for closed fracture (2) Calcaneus fracture, right Priority: Secondary Status: Acute Qualifiers: Encounter type: subsequent encounter Calcaneus location: unspecified portion of calcaneus Fracture type: closed Fracture alignment: displaced Fracture healing: with routine healing Qualified Code(s): S92.001D - Unspecified fracture of right calcaneus, subsequent encounter for fracture with routine healing (3) Coronary artery disease Priority: Secondary Status: Chronic Qualifiers: Coronary Disease-Associated Artery/Lesion type: [place] artery [place] vs. transplanted heart: [place] heart Associated angina: without angina Qualified Code(s): I25.10 - Atherosclerotic heart disease of [place] coronary artery without angina pectoris - Discharge Medications Prescriptions: Morphine Sulfate [Arymo ER] 15 mg PO BID #10 tab.po.er Home Medications: Clopidogrel [Plavix] 75 mg PO HS 11/17/16 [History] Duloxetine HCl [Cymbalta] 60 mg PO HS 11/17/16 [History] Gabapentin [Neurontin] 800 mg PO TID 11/17/16 [History] Lisinopril [Zestril] 10 mg PO HS 11/17/16 [History] Oxycodone HCl/Acetaminophen [Percocet 10-325 mg Tablet] 1 each PO Q6H PRN [History] Aspirin [Lo-Dose Aspirin EC] 81 mg PO HS 12/22/16 [History] Morphine Sulfate [Arymo ER] 15 mg PO BID #10 tab.po.er 12/25/16 [Rx] Allergies/Adverse Reactions: 3 Allergy/AdvReac Type Severity Reaction Status Date / Time ciprofloxacin [From Cipro] AdvReac Hallucinati Verified 12/22/16 21:54 ng,ITCHING Date of admission: 12/23/16 15:32 Primary care physician: Adenike Emerson CNP Consults: 12/23/16 00:36 Consult to Occupational Therapy [CONS] Routine Comment: Evaluate, develop and implement POC Reason for Consult: weakness Consult to Orthopedic Surgery [CONS] Routine Consulting Provider: Orthopedics [facility] Reason for Consult: back pain Call Completed: Yes Consult to Physical Therapy [CONS] Routine Comment: Evaluate, develop and implement POC Reason for Consult: back pain 12/23/16 01:28 Consult to Nutrition [CONS] Routine Comment: Consulting Provider: NUTRITION Reason for Dietary Consult: MST Score Discharging clinician: Rico Keller Anticipated date of discharge: 12/25/16 - Patient Status Disposition: Home, Self-Care Condition: Good Functional capacity at discharge: independent ambulation Overall status at discharge: patient is progressing back to baseline - Discharge Instructions Follow Up With: Carolann Alex PAC [Physician Biblical Studies Professor] - 01/13/17 9:45 am Chung Rayo Jr, MD [Partnered Physician] - (in 1- 2 weeks for follow up) Adenike Emerson GAS METER INSTALLER [Primary Care Provider] - 01/05/17 1:00 pm () Additional Instructions: Discharge Instructions: Lumbar Please call [facility] ([phone]), your Primary Care Physician, or report to the ER if you have any of the following symptoms: Fever greater that 101.5, increased pain/redness/drainage/odor for your incision site or any other concerning symptoms. ACTIVITY * May Shower * No Tub Baths * No lifting greater than 10 pounds * No Smoking * No Swimming * No off Ground Activities (Running, Climbing, Ladders, Horseback Riding) * No Driving * Wear Back Brace when up walking if lumbar fusion done MEDICATIONS: Upon discharge resume your home medications. Take all the medications as prescribed. Take a stool softener if taking narcotic pain medications. Stool softeners are only effective if you drink enough fluids. Drink 6-8 glass of water or fluids a day, unless this is not allowed for another health problem. Despite using stool softeners, if you haven't had a bowel movement in 3 days, please switch to a gentle laxative. Gentle laxatives are sold over the counter. You should have a bowel movement within 24 hours, if not call the office. You will be discharged from the hospital with a prescription for pain medication. You are encouraged to decrease the use of narcotic pain medication as tolerated. Should you require a refill, please call the office. It is best to call 48-72 hours in advance of needing a prescription refill so you don't run out of medication. WOUND CARE: Remove Dressing Tomorrow. Leave incision open to air. Pat dry when you get out of the shower. FOLLOW-UP: Please follow up with your surgeon in the orthopedic clinic in 2 weeks from the day of surgery. References: [place] [employer] (www.[email or web address].org) - Diet and Activity Activity: increase activity as tolerated Diet: low fat, low cholesterol, low salt diet Hospital course: Mr. Abbasi is a 51 year old male patient who presented to the ER with complaints of acute on chronic back pain. He apparently had recently fallen from a ladder. CT scan of the lumbar spine showed a vertebral fracture involving the superior endplates of L2 and L3. Spine surgery was consulted and they recommended kyphoplasty. Patient underwent this procedure yesterday. Since then his mood remained stable on the floor. His pain is controlled with oral medications but he does require intravenous medications intermittently to control breakthrough pain. At this time, he is being cleared for discharge by spine surgery. He was evaluated by physical therapy and recommended that he he is able to return to his prior living situation. He will be discharged today and will follow up with spine surgery as outpatient. He will be provided with prescription for long-acting narcotic pain medications that he may use regularly over the next week and take his Percocet as needed for breakthrough pain. - Time Spent with Patient Total time spent providing and/or coordinating discharge services: Less than 30 minutes (25 min) - Constitutional Vitals: Temp Pulse Resp BP Pulse Ox 98 F 74 16 129/76 98 12/25/16 09:30 12/25/16 09:30 12/25/16 09:30 12/25/16 09:30 12/25/16 09:30 General appearance: Present: A&O X 3, obese, answers questions appropriately - Neck Neck exam general surgery: Present: supple, trachea midline. Absent: lymphadenopathy - Respiratory Respiratory exam: Present: CTAB. Absent: accessory muscle use, rales, rhonchi, wheezes - Cardiovascular Cardiovascular exam: Present: RRR, +S1, +S2. Absent: diastolic murmur, gallop, rubs, systolic murmur - GI/Abdominal GI/Abdominal exam: Present: normal bowel sounds, soft, no peritoneal signs. Absent: distended, tenderness - Extremities Exam Extremities exam: Present: warm, radial pulses palpable and symmetrical. Absent : calf tenderness, cyanotic, pedal edema - Neurological Exam Neurological exam: Present: alert, oriented X3, no focal deficits. Absent: facial droop, speech deficit - VTE Documentation of Mechanical Device: Venous foot pump, device
[2016-12-25] MEDS ORDERED: *HR* OxyCODONE ER (12 HR) 10 MG TABLET PO SCH (13:30)
--- NOTE | 2016-12-25 13:30 | Orthopedic Operative Note ---
Date of procedure: 12/24/16 Pre-op diagnosis: Vertebral compression fracture Post-op diagnosis: same Operation/Findings: Kyphoplasty L2: The patient was brought to the operative theater where successful endotracheal anesthesia was performed. The patient was given antibiotics prior to the start of the procedure. Compression boots and stockings were used for deep vein thrombosis. Patient was then turned prone on a well-padded Delta table. The back was prepped and draped in the usual sterile fashion. 2 C-arm fluorographic devices were brought into position such that simultaneous AP and lateral views centered over the involved L2 vertebral body could be performed. A stab incision was made over the superior-lateral aspect of the left L2 pedicle. We introduced a Jamshidi needle into the vertebral body via a transpedicular route. We took biplanar images of the vertebral body using fluorography. The needle was found to be in appropriate position and within the confines of the L2 vertebral body. We then introduced a biopsy trocar and obtained a biopsy specimen of the L2 vertebral body. This was sent for pathologic evaluation. We then removed the biopsy trocar and introduced a Kyphon balloon. The balloon was insufflated to approximately 4 mL volume and subsequently deflated. The balloon was seen to expand within the confines of the L2 vertebral body on biplanar fluorographic views. The balloon was then removed. We then inserted cement trochars and sequentially placed bone cement within the confines of the L2 vertebral body. We took intermittent fluorographic views which confirmed satisfactory placement of the cement. After completion of the cementation process, the trocar was removed. We took final AP and lateral fluorographic views. We then closed the stab incision with 2-0 nylon suture. A Band-Aid was placed over the wound. The patient was turned supine on a hospital bed and extubated. All sponge instrument and needle counts were correct at the end of the procedure. The patient tolerated the procedure well without complications. Anesthesia: GETA Surgeon: Chung Rayo Jr Estimated blood loss (cc): 3 Specimen: L2 vertebral biopsy Condition: stable Disposition: PACU
--- NOTE | 2016-12-25 13:32 | Spine Progress Note ---
Date of Encounter: 12/25/16 Time of Encounter: 13:31 - Assessment and Plan (1) Lumbar vertebral fracture Current Visit: Yes Status: Acute He is lying in bed in obvious pain secondary to back pain. Afebrile vital signs stable. He is neurovascularly intact with regard to his bilateral lower extremities. He is tenderness to palpation in the lumbar region. His hip move symmetrically. He has a posterior splint over the right leg and ankle. CT scan of the lumbar spine reveals an instrumented fusion with pedicle screws at L3 and S1. Fusion extends from L3-S1 and there is an interbody graft at L5- S1. There is no hardware complication seen. There are acute superior endplate fractures at L2 and L3. The L2 fracture has approximately 20% loss of vertebral height. There is minimal loss of height of the L3 fracture. Impression: 1) Vertebral fractures L2 and L3 superior endplates 2) history of previous lumbar fusion. Plan: I had a long discussion with the patient regarding treatment of vertebral fractures of the lumbar spine. We discussed nonoperative treatment including bracing and analgesics. The patient would like to proceed with kyphoplasty of L2. The patient understands that the presence of pedicle screws in L3 precludes cannulating this vertebral body via a transpedicular route. The L2 fracture is the more severe fracture pattern and this was discussed. Risks benefits and possible complications were discussed and the patient would like to proceed. We are going to hold his Plavix until after the surgical procedure. The patient understands he must be medically optimized and cleared prior to surgical intervention. Qualifiers: Encounter type: initial encounter Lumbar vertebra fracture level: L2 Fracture type: closed Fracture morphology: other fracture Qualified Code(s) : S32.028A - Other fracture of second lumbar vertebra, initial encounter for closed fracture (2) History of lumbar spinal fusion Current Visit: Yes Status: Acute Subjective Principal diagnosis: Vertebral compression fracture, status post kyphoplasty Interval history: The patient is without complaints. Pain improved compared to preoperative state. Afebrile vital signs are stable. Band-Aids intact. Neurovascularly intact with regard to bilateral lower extremities. Fires all upper and lower extremity motor groups. Assessment :stable. Plan mobilize ,continue analgesics, discharge planning. Objective Vital signs: Vital Signs Temp Pulse Resp BP Pulse Ox 12/25/16 09:30 98 F 74 16 129/76 98 12/25/16 06:38 97.9 F 68 16 134/78 96 12/25/16 05:02 97.7 F 66 18 131/77 95 12/24/16 23:14 97.7 F 69 14 150/83 97 12/24/16 18:56 97.7 F 73 14 107/65 95 12/24/16 15:30 97.6 F 68 18 133/77 96 12/24/16 15:10 97.3 F L 65 16 134/76 94 12/24/16 14:30 97.8 F 63 26 132/84 96 12/24/16 13:40 97.3 F L 56 12 104/83 99 Intake and Output 12/24/16 12/25/16 12/25/16 23:59 07:59 15:59 Intake Total 2490 / 2490 1020 / 1020 Output Total 2725 / 2725 1500 / 1500 Balance -235 / -235 -480 / -480 Intake: IV Fluids 1050 / 1050 50 / 50 Lactated Ringers 1,000 ML @ 125 1000 / 1000 mls/hr IVC .Q8H MARY Rx#: [id number] Ancef Premix DUPLEX 2,000 mg In 50 / 50 50 / 50 50 ml @ 100 mls/hr IVPB Q8H MARY Rx#:[id number] Oral 1440 / 1440 970 / 970 Output: Urine 2725 / 2725 1000 / 1000 Catheter 500 / 500 Other: Meal Dinner Percent of Meal Consumed 100% - Labs CBC & BMP: 12/22/16 19:00 12/22/16 19:00 Labs: Abnormal lab results RBC 3.83 M/mcL (4.19-5.50) L 12/22/16 19:00 Hgb 11.8 g/dL (12.9-16.9) L 12/22/16 19:00 Hct 36.8 % (37.5-50.1) L 12/22/16 19:00 Glucose 114 mg/dL (70-99) H 12/22/16 19:00 Total Bilirubin < 0.2 mg/dL (0.2-1.2) L 12/22/16 19:00 Alkaline Phosphatase 146 Units/L (38-126) H 12/22/16 19:00 C-Reactive Protein 32 mg/L (Less than 5) H 12/22/16 19:00 Globulin 4.0 g/dL (2.4-3.5) H 12/22/16 19:00 Albumin/Globulin Ratio 1.0 (1.1-2.2) L 12/22/16 19:00 Ur Specific [place] 1.026 (1.010-1.025) H 12/22/16 19:47 Consult Discharge Plan - Plan Referrals: Chung Rayo Jr, MD [Partnered Physician] - (in 1- 2 weeks for follow up) Adenike Emerson CNP [Primary Care Provider] - (in 1-2 weeks) Prescriptions: Morphine Sulfate [Arymo ER] 15 mg PO BID #10 tab.po.er
[2016-12-25 14:18] VITALS: BP 131/81
== END 2016-12-25 16:32 | disposition home or self-care (01) | DRG 479 ==
LOC: 3NENU 16:32 → EMEROO 16:32 → SUATTDRO 22:55 → 3NENU 22:57
PROVIDERS: ADMIT Hospitalist; ATTEND Internal Medicine